=== PATIENT | female | born 1985 ===

== ENCOUNTER 2017-04-24 17:17 | Inpatient (IN) | payer OTHER ==
[~2017-04-24] VITALS: Ht 167.6 cm; Wt 64.9 kg
[2017-04-24 18:48] VITALS: BP 121/79
[2017-04-24 19:00] VITALS: BP 124/88
[2017-04-24] MEDS ORDERED: IV NORMAL SALINE 1000ML BAG 1,000 ML IV SCH (21:22)
[2017-04-24] MEDS ORDERED: TRAZ100T12 PO (21:23)
[2017-04-24] MEDS ORDERED: CLON1TAB3 PO (21:23)
[2017-04-24] MEDS ORDERED: OXCA300T3 PO (21:23)
[2017-04-24] MEDS ORDERED: QUET25TA5 PO (21:23)
[2017-04-24] MEDS ORDERED: ESCITALOPRAM OX20 MG PO (21:23)
[2017-04-24] MEDS ORDERED: ENOXAPARIN 40 MG/0.4 ML SYRINGE. SQ SCH (21:30)
--- NOTE | 2017-04-24 22:42 | HP ---
ADMIT DATE: 04/24/2017 CHIEF COMPLAINT: Intentional drug overdose. HISTORY OF PRESENT ILLNESS: The patient is a 32-year-old woman with past medical history of depression as well as multiple suicide attempts who was found on her bed, sleeping with an open bottle of Seroquel next to her. She was brought to the ER at [facility] where she had been seen multiple times in the past. She was not able to contribute as she was sedated, awoke briefly and became aggressive, but no further attempts in communicating with her were undertaken. Apparently, she is on multiple psychiatric medications including Seroquel and Klonopin. She recently got her medications filled. Reportedly by family accounts, as Seroquel pills are actually accounted for. Her urine drug screen at [facility] was positive for benzodiazepines only. PAST MEDICAL HISTORY: Depression, suicide attempts FAMILY HISTORY: Unknown. SOCIAL HISTORY: Unknown. Unable to obtain from the patient secondary to sedation. ALLERGIES: Unknown. MEDICATIONS: List obtained from family and reconciled with MAR. REVIEW OF SYSTEMS: Unable to obtain secondary to sedation. PHYSICAL EXAMINATION: VITAL SIGNS: From today show a blood pressure of 124/88, heart rate at 103, respiratory rate at 16. She is afebrile. GENERAL: This is an overweight 32-year-old woman, sleeping soundly, in no acute distress. HEENT: Shows no scleral icterus. NECK: Supple. LUNGS: Clear. HEART: Has regular rate and rhythm. ABDOMEN: Has positive bowel sounds, soft, nontender. EXTREMITIES: Show no edema. SKIN: Warm, soft and dry. LABORATORY DATA: From [facility] not available, but by report normal. UDS positive for benzodiazepines. ASSESSMENT AND PLAN: The patient is a 32-year-old woman with a psychiatric disorder including depression and now admitted status post intentional drug overdose. It is unclear if she actually took Seroquel versus an overdose of benzodiazepines. We will monitor here. She is hemodynamically stable and airway is intact. We will continue with IV fluids for the time being. She will receive 1:1 sitter. By history, she has been combative in the past. Restraints will be utilized only if needed. Anticipating that she will wake up sometime tomorrow, will call PET team for evaluation and potential admission to inpatient psych. We will monitor labs in the meantime in the morning as well. She will be placed on Lovenox for prophylaxis. HELEN LINARES MD DR: AMELIA/nts JOB#: [id number] / [id number] CHILO
[2017-04-24 23:00] VITALS: BP 122/80
--- NOTE | 2017-04-25 05:28 | ACF ---
Admission Forms Criteria DRUG INGESTION OR OVERDOSE Clinical Indications for Admission to Inpatient Care ( Place 'X' for any and all applicable criteria): Admission is indicated for severe toxicity as indicated by ANY ONE of the following(1)(2)(3)(4)(5)(6): [X]I. Inpatient admission required rather than observation care (Also use Drug Ingestion or Overdose: Observation Care guideline as appropriate) because of ANY ONE of the following: [ ]a) Altered mental status that is severe or persistent [ ]b) Clinical finding (eg, metabolic acidosis, hypoglycemia, bradycardia) that is severe or persistent [ ]c) Toxic drug level that is persistent [X]d) Psychiatric risk status not acceptable for outpatient management [ ]e) Continuous intravenous infusion of anticoagulation, platelet inhibitor, vasoactive, or antiarrhythmic medication (15)(16) [ ]f) Other condition, treatment or monitoring requiring inpatient admission [ ]II. Respiratory abnormalities [ ]III. Specific finding indicating severe and likely prolonged drug toxicity [ ]IV. Hemodynamic instability [ ]V. Dangerous arrhythmia [ ]. Hypertension requiring inpatient treatment Extended stay beyond goal length of stay may be needed for (4): [ ]a) Neurologic or respiratory compromise [ ]b) Hemodynamic instability [ ]c) Persistent toxic drug levels (25) [ ]d) Severe drug toxicities or complications [ ]e) Ongoing antidote treatment (eg, acetaminophen overdose)(5) [ ]f) Older patients(65 years or older) The original [facility] content created by [employer] has been revised. The portions of the content which have been revised are identified through the use of italic text or in bold, and [facility] has neither reviewed nor approved the modified material. All other unmodified content is copyright [facility]. Please see references footnoted in the original [facility] edition 2016 Admission Criteria Met?: Yes SELVIN GARCIA Apr 25, 2017 05:28 HELEN LINARES MD Apr 25, 2017 20:37
[2017-04-25 06:52] LABS: ALBUMIN 2.9 g/dL (3.4-5.0); CALCIUM 7.9 mg/dL (8.5-10.1); CREATININE 0.7 mg/dL (0.6-1.0); GFR 95.8; POTASSIUM 3.7 mmol/L (3.5-5.1); TOTAL BILIRUBIN 0.3 mg/dL (0.2-1.0); TOTAL PROTEIN 5.7 g/dL (6.4-8.2)
[2017-04-25 06:53] VITALS: BP 116/87
[2017-04-25 06:57] LABS: ALBUMIN 2.9 g/dL (3.4-5.0); DIRECT BILIRUBIN 0.1 mg/dL (0.0-0.2); TOTAL BILIRUBIN 0.4 mg/dL (0.2-1.0); TOTAL PROTEIN 6.2 g/dL (6.4-8.2)
[2017-04-25 07:01] LABS: BASO % 0 % (0-3); EOS % 0 % (0-3); HEMATOCRIT 38.1 % (36.0-47.0); HEMOGLOBIN 12.8 g/dL (12.0-15.5); LYMPH # 1.4 x10^3/uL (1.0-4.8); LYMPH % 16 % (24-48); MEAN CORPUSCULAR HEMOGLOBIN 34 pg (25-35); MEAN CORPUSCULAR HGB CONC 34 g/dL (31-37); MEAN CORPUSCULAR VOLUME 100 fL (79-100); MONO % 6 % (0-9); NEUT % 77 % (31-73); PLATELET COUNT 259 x10^3/uL (140-400); RED BLOOD COUNT 3.82 x10^6/uL (3.50-5.40); RED CELL DISTRIBUTION WIDTH 14.5 % (11.5-14.5); WHITE BLOOD COUNT 8.7 x10^3/uL (4.0-11.0)
[2017-04-25 10:08] VITALS: BP 98/52
--- NOTE | 2017-04-25 13:32 | PDOC ---
PROGRESS NOTES Chief Complaint Chief Complaint intentional OD ASSESSMENT AND PLAN: 1. Intentional drug OD: ?seroquel vs benzo. somnolence resolving. PAT team eval 2. Hypernatremia: encourage PO fluids, D5W bolus 3. midl-mod PCM: nutrition consult History of Present Illness History of Present Illness no aches or pains. state sshe took a cocktail of seroquel, clonopin and trazodone Vitals Vitals Vital Signs Date Time Temp Pulse Resp B/P (MAP) Pulse Ox O2 Delivery O2 Flow Rate FiO2 04/25/17 10:08 97.7 118 18 98/52 (67) 97 Room Air 97.7 Physical Exam General: Alert, Other (confused, verbal diarrhea) Heart: Regular rate Lungs: Clear Abdomen: Normal bowel sounds, Soft, No tenderness Extremities: No clubbing Skin: No significant lesion Labs LABS Laboratory Tests Test 04/25/17 05:54 White Blood Count 8.7 x10^3/uL (4.0-11.0) Red Blood Count 3.82 x10^6/uL (3.50-5.40) Hemoglobin 12.8 g/dL (12.0-15.5) Hematocrit 38.1 % (36.0-47.0) Mean Corpuscular Volume 100 fL (79-100) Mean Corpuscular Hemoglobin 34 pg (25-35) Mean Corpuscular Hemoglobin Concent 34 g/dL (31-37) Red Cell Distribution Width 14.5 % (11.5-14.5) Platelet Count 259 x10^3/uL (140-400) Neutrophils (%) (Auto) 77 % (31-73) Lymphocytes (%) (Auto) 16 % (24-48) Monocytes (%) (Auto) 6 % (0-9) Eosinophils (%) (Auto) 0 % (0-3) Basophils (%) (Auto) 0 % (0-3) Neutrophils # (Auto) 6.8 x10^3uL (1.8-7.7) Lymphocytes # (Auto) 1.4 x10^3/uL (1.0-4.8) Monocytes # (Auto) 0.5 x10^3/uL (0.0-1.1) Eosinophils # (Auto) 0.0 x10^3/uL (0.0-0.7) Basophils # (Auto) 0.0 x10^3/uL (0.0-0.2) Sodium Level 146 mmol/L (136-145) Potassium Level 3.7 mmol/L (3.5-5.1) Chloride Level 111 mmol/L (98-107) Carbon Dioxide Level 26 mmol/L (21-32) Anion Gap 9 (6-14) Blood Urea Nitrogen 6 mg/dL (7-20) Creatinine 0.7 mg/dL (0.6-1.0) Estimated GFR (Cockcroft-Gault) 95.8 BUN/Creatinine Ratio 9 (6-20) Glucose Level 79 mg/dL (70-99) Calcium Level 7.9 mg/dL (8.5-10.1) Total Bilirubin 0.4 mg/dL (0.2-1.0) Direct Bilirubin 0.1 mg/dL (0.0-0.2) Aspartate Amino Transf (AST/SGOT) 48 U/L (15-37) Alanine Aminotransferase (ALT/SGPT) 27 U/L (14-59) Alkaline Phosphatase 46 U/L (46-116) Total Protein 6.2 g/dL (6.4-8.2) Albumin 2.9 g/dL (3.4-5.0) Albumin/Globulin Ratio 1.0 (1.0-1.7) HELEN LINARES MD Apr 25, 2017 13:32
[2017-04-25 14:32] VITALS: BP 104/63
[2017-04-25] MEDS ORDERED: IV DEXTROSE 5% 500 ML IV ONE (15:00)
[2017-04-25 19:00] VITALS: BP 103/67
[2017-04-25] MEDS: ENOXAPARIN 40 MG/0.4 ML SYRINGE. SQ SCH (20:58)
[2017-04-25 23:00] VITALS: BP 115/77
[2017-04-25] MEDS: NICOTINE 21MG PATCH. TD PRN (23:59)
[2017-04-26] VITALS (7 sets, daily range): BP systolic 112–131; BP diastolic 71–92
--- NOTE | 2017-04-26 09:15 | PDOC ---
PROGRESS NOTES Chief Complaint Chief Complaint intentional OD ASSESSMENT AND PLAN: 1. Intentional drug OD: ?seroquel vs benzo. somnolence resolving. PAT team eval done yesterday, found "not appropriate" (from psych standpoint?), anticipate transfer to inpt psych. anxiety increasing. not sure what O/P meds she actually is supposed to be taking. ativan PRN for now for increasing anxiety 2. Hypernatremia: resolved 3. midl-mod PCM History of Present Illness History of Present Illness anxious, requesting her psych meds Vitals Vitals Vital Signs Date Time Temp Pulse Resp B/P (MAP) Pulse Ox O2 Delivery O2 Flow Rate FiO2 04/26/17 07:00 97.9 97 18 129/82 (98) 98 97.9 04/25/17 23:00 Room Air Physical Exam General: Alert, No acute distress Heart: Regular rate Lungs: Clear Abdomen: Normal bowel sounds, Soft, No tenderness Extremities: No edema Skin: No significant lesion HELEN LINARES MD Apr 26, 2017 09:15
[2017-04-26] MEDS ORDERED: LORazepam 0.5 MG TABLET PO ONE (09:45)
[2017-04-26] MEDS: NICOTINE 21MG PATCH. TD PRN (09:56)
[2017-04-26 11:21] LABS: CALCIUM 9.2 mg/dL (8.5-10.1); CREATININE 0.8 mg/dL (0.6-1.0); GFR 82.1; POTASSIUM 3.8 mmol/L (3.5-5.1)
[2017-04-26] MEDS ORDERED: traZODone 100 MG TABLET. PO SCH (21:00)
[2017-04-26] MEDS: ENOXAPARIN 40 MG/0.4 ML SYRINGE. SQ SCH (21:00)
[2017-04-26] MEDS ORDERED: QUEtiapine 25 MG TABLET. PO SCH (21:00)
[2017-04-27] MEDS: BENZOCAINE 10% ORAL GEL 7GM TUBE. TP PRN ×4 (04:14→14:47)
[2017-04-27 07:01] VITALS: BP 118/76
[2017-04-27] MEDS: NICOTINE 21MG PATCH. TD PRN (10:23)
[2017-04-27 10:34] VITALS: BP 107/66
[2017-04-27 14:01] VITALS: BP 110/77
[2017-04-27] MEDS: ENOXAPARIN 40 MG/0.4 ML SYRINGE. SQ SCH (20:15)
[2017-04-27] MEDS ORDERED: QUEtiapine 25 MG TABLET. PO SCH (21:00)
[2017-04-27] MEDS ORDERED: clonazePAM 1 MG TABLET PO SCH (21:00)
[2017-04-27] MEDS ORDERED: traZODone 100 MG TABLET. PO SCH (21:00)
[2017-04-27] MEDS ORDERED: OXcarbazepine 300 MG TABLET PO SCH (21:00)
[2017-04-28] MEDS ORDERED: ESCITALOPRAM 5 MG TABLET. PO SCH (09:00)
--- NOTE | 2017-04-30 00:20 | DS ---
DATE OF DISCHARGE: 04/28/2017 CHIEF COMPLAINT: Multidrug overdose, suicidal ideation. HOSPITAL COURSE: The patient is a 32-year-old woman with longstanding history of bipolar, who presented after being found at home sleeping on the bed with an open bottle of Seroquel. She was brought to the Emergency Room, remained somnolent, but maintaining her airway without any problems. She was therefore admitted to the floor. She recovered within 24 hours and actually became quite manic. On the day of discharge, she initially was seen by a PAT crab steamer who declared her no longer in active SI and cleared medically to go home. This, however, was reversed in the afternoon when a second PAT crab steamer saw her and found her manic and rescinded discharge for further placement once psychiatric bed would open up for her. Due to some apparent confusion, the patient was nevertheless discharged to home in the middle of the night as a friend came and picked her up. DISCHARGE DATE: 04/27/2017. DISCHARGE DIAGNOSES: Suicidal attempt, bipolar. DISCHARGE DISPOSITION: To home. DISCHARGE CONDITION: Stable. DISCHARGE EXAMINATION: Please refer to note from same day. DISCHARGE INSTRUCTIONS: The patient to follow up with psychiatric team PHILLIP. HELEN LINARES MD DR: UR/nts JOB#: [id number] / [id number] CHILO
== END 2017-04-27 23:23 | disposition home or self-care (01) | DRG 917 ==
LOC: 6 SOUTH 18:40
PROVIDERS: ADMIT Internal Medicine Hematology & Oncology; ATTEND Internal Medicine Hematology & Oncology
DX: T42.4X2A Poisoning by benzodiazepines, intentional self-harm, initial encounter (principal); G92 Toxic encephalopathy; E87.0 Hyperosmolality and hypernatremia; E44.0 Moderate protein-calorie malnutrition; E66.3 Overweight; F32.9 Major depressive disorder, single episode, unspecified; F41.9 Anxiety disorder, unspecified; Z68.23 Body mass index [BMI] 23.0-23.9, adult; Z91.5 Personal history of self-harm; Z79.899 Other long term (current) drug therapy
CPT/HCPCS: 36415; 80048; 80053; 80076; 85027; J2060; J7030